=== PATIENT | male | born 1990 | race Asian ===

== ENCOUNTER 2017-02-02 03:52 | Emergency (ER) | payer MEDICAID ==
[2017-02-02 05:09] VITALS: BP 128/73
== END 2017-02-02 05:09 | disposition home or self-care (01) ==
LOC: ED 03:52
DX: S29.011A Strain of muscle and tendon of front wall of thorax, initial encounter (principal); Z88.1 Allergy status to other antibiotic agents; Z88.2 Allergy status to sulfonamides; X58.XXXA Exposure to other specified factors, initial encounter; Y93.89 Activity, other specified; Y92.89 Other specified places as the place of occurrence of the external cause; Y99.8 Other external cause status